=== PATIENT | female | born 1985 | race Hispanic/Latino ===

== ENCOUNTER 2022-05-23 23:13 | Emergency (ER) | payer SELFPAY ==
--- NOTE | ~2022-05-23 | CT_ITS ---
EXAMINATION: CT brain wo con DATE: 05/24/2022 00:16 INDICATION: Headache. Dizziness. TECHNIQUE: Computed tomography (CT) of the head was performed without intravenous contrast. The mA wa s adjusted according to patient size. Iterative reconstruction technique was employed. The dose-lengt h product was 605.33 mGy-cm. COMPARISON: None FINDINGS: There is no intracranial hemorrhage, acute infarction, or abnormal intracranial mass lesion . The ventricles are normal in size. There is mild mucosal thickening in the paranasal sinuses. The m astoid air cells are normal. IMPRESSION: 1. Normal brain. Reviewed, dictated and finalized at location A. IMPRESSION: 1. Normal brain.
[2022-05-23 23:29] VITALS: BP 141/90; PULSE 95; RESP 16; O2SAT 100
--- NOTE | 2022-05-23 23:43 | ED_ITS ---
HPI - General Adult General Chief complaint: Unspecified Stated complaint: Right hand swelling Headache Vomiting Time Seen by Provider: 05/23/22 23:19 History of Present Illness HPI narrative: 36-year-old female presents to the emergency room for multiple medical problems. Patient states that she woke up this morning and noticed swelling to her right hand. Denies any known injury or trauma. Does endorse a history of a DVT in the right arm 1 year ago, which she was put on anticoagulant therapy for 12 days following a cholecyst patient also states she woke up this morning with a throbbing headache on the right side occasionally causes her dizziness and blurred vision. This is associated with nausea. Denies any known head injury. Denies vision loss or hearing changes. Related Data Home Medications Medication Instructions Recorded Confirmed No Home Medications 05/23/22 05/23/22 Allergies Allergy/AdvReac Type Severity Reaction Status Date / Time No Known Allergies Allergy Verified 05/23/22 23:33 Course Vital Signs Vital signs: Vital Signs Pulse Rate 95 05/23/22 23:29 Respiratory Rate 16 05/23/22 23:29 Blood Pressure 141/90 H 05/23/22 23:29 Pulse Oximetry 100 05/23/22 23:29 Oxygen Delivery Room Air 05/23/22 23:29 Pulse Rate 95 05/23/22 23:29 Respiratory Rate 16 05/23/22 23:29 Blood Pressure 141/90 H 05/23/22 23:29 Pulse Oximetry 100 05/23/22 23:29 Oxygen Delivery Room Air 05/23/22 23:29 Medical Decision Making Vital Signs Vital Signs: Vital Signs Pulse Rate 95 05/23/22 23:29 Respiratory Rate 16 05/23/22 23:29 Blood Pressure 141/90 H 05/23/22 23:29 Pulse Oximetry 100 05/23/22 23:29 Oxygen Delivery Room Air 05/23/22 23:29 Pulse Rate 95 05/23/22 23:29 Respiratory Rate 16 05/23/22 23:29 Blood Pressure 141/90 H 05/23/22 23:29 Pulse Oximetry 100 05/23/22 23:29 Oxygen Delivery Room Air 05/23/22 23:29 Imaging Data Radiologist's impression: Head CT: Normal head CT Discharge Plan Discharge Clinical Impression: Hand swelling, Headache, Nausea, Elevated d-dimer Patient Disposition: Home, Self-Care Condition: Stable Instructions: Antibiotic Form Additional Instructions: Return tomorrow morning at 7:00 a.m. to have the ultrasound performed in your right arm to rule out a DVT. You will need to follow-up with your primary care physician if the results of the ultrasound are positive for blood clot. Patient Language: [place] Citizen Prescriptions: No Action No Home Medications Follow-up/Referrals: PHYSICIAN NOT ON STAFF,NONSTAFF [Primary Care Provider] - Time of Disposition: 01:11
[2022-05-23] MEDS: SODIUM CHLORIDE 0.9% IV 1,000 ML 999 ML IV CONT (23:52)
[2022-05-23] MEDS: KETOROLAC 30 MG/ML VIAL (*BKC) IV PUSH (23:54)
[2022-05-23] MEDS: diphenhydrAMINE HCl INJ 50 MG/ML VIAL 25 MG IV PUSH (23:55)
[2022-05-23 23:58] LABS: Basophils Absolute Auto 0.1 K/mm3 (0.0-0.1); Basophils Percent Auto 0.8 % (0.2-1.2); Eosinophils Absolute Auto 0.4 K/mm3 (0-0.3); Eosinophils Percent Auto 3.3 % (0-4.4); Hematocrit 31.8 % (37.0-47.0); Hemoglobin 8.5 g/dL (12.0-15.0); Immature Granulocyte Absolute 0.03 K/mm3 (0.00-0.031); Immature Granulocyte Percent A 0.3 % (0-0.5); Lymphocytes Absolute Auto 2.37 K/mm3 (0.9-3.2); Lymphocytes Percent Auto 22.2 % (18.3-44.2); Mean Corpuscular HGB Conc 26.7 g/dl (32-36); Mean Corpuscular Hemoglobin 18.1 pg (26-34); Mean Corpuscular Volume 67.7 fl (80-100); Monocytes Absolute Auto 0.7 K/mm3 (0.1-0.6); Monocytes Percent Auto 6.2 % (2.6-8.5); Neutrophils Absolute Auto 7.2 K/mm3 (1.3-6.7); Neutrophils Percent Auto 67.2 % (45.5-73.1); Platelet Count Result 396 k/mm3 (150-375); Red Cell Distribution Width 19.9 % (11.5-14.5); White Blood Count 10.7 K/mm3 (4.5-10.0)
[2022-05-23 23:59] LABS: Platelet Estimate Adequate (Adequate)
[2022-05-24] LABS: Hypochromasia 1+ (NORMAL); Microcytosis 1+ (NORMAL)
[2022-05-24] MEDS: METOCLOPRAMIDE HCL INJ 10 MG/2 ML VIAL IV PUSH (00:03)
[2022-05-24 00:14] LABS: Anion Gap 10 mmol/L (8-16); Blood Urea Nitrogen 11 mg/dL (7-17); Calcium 9.7 mg/dL (8.4-10.2); Carbon Dioxide 25 mmol/L (22-30); Chloride 103 mmol/L (98-107); D Dimer 1.18 ug/mL (<0.48); Estimated Glomerular Filt Rate > 60; Glucose 103 mg/dL (65-110); Potassium 3.5 mmol/L (3.4-5.0); Sodium 138 mmol/L (137-145)
[2022-05-24 00:27] LABS: Erythrocyte Sedimentation Rate 12 mm/hr (0-20)
[2022-05-24 00:48] VITALS: BP 105/74; PULSE 75; RESP 16; O2SAT 100
[2022-05-24] MEDS: APIXABAN 5 MG TABLET PO (01:30)
--- NOTE | 2022-05-24 01:37 | ED.GENADULT ---
HPI - General Adult General Chief complaint: Unspecified Stated complaint: Right hand swelling Headache Vomiting Time Seen by Provider: 05/23/22 23:19 Related Data Allergies Allergy/AdvReac Type Severity Reaction Status Date / Time No Known Allergies Allergy Verified 05/23/22 23:33 Course Vital Signs Vital signs: Vital Signs Pulse Rate 95 05/23/22 23:29 Respiratory Rate 16 05/23/22 23:29 Blood Pressure 141/90 H 05/23/22 23:29 Pulse Oximetry 100 05/23/22 23:29 Oxygen Delivery Room Air 05/23/22 23:29 Pulse Rate 75 05/24/22 00:48 Respiratory Rate 16 05/24/22 00:48 Blood Pressure 105/74 05/24/22 00:48 Pulse Oximetry 100 05/24/22 00:48 Oxygen Delivery Room Air 05/23/22 23:29 Medical Decision Making Vital Signs Vital Signs: Vital Signs Pulse Rate 95 05/23/22 23:29 Respiratory Rate 16 05/23/22 23:29 Blood Pressure 141/90 H 05/23/22 23:29 Pulse Oximetry 100 05/23/22 23:29 Oxygen Delivery Room Air 05/23/22 23:29 Pulse Rate 75 05/24/22 00:48 Respiratory Rate 16 05/24/22 00:48 Blood Pressure 105/74 05/24/22 00:48 Pulse Oximetry 100 05/24/22 00:48 Oxygen Delivery Room Air 05/23/22 23:29 Lab Data Result diagrams: 05/23/22 23:53 05/23/22 23:53 Labs: Lab Results 05/23/22 05/23/22 05/23/22 Range/Units 23:53 23:53 23:53 WBC 10.7 H (4.5-10.0) K/mm3 RBC 4.70 (4.2-5.4) M/mm3 Hgb 8.5 L (12.0-15.0) g/dL Hct 31.8 L (37.0-47.0) % MCV 67.7 L (80-100) fl MCH 18.1 L (26-34) pg MCHC 26.7 L (32-36) g/dl RDW 19.9 H (11.5-14.5) % Plt Count 396 H (150-375) k/mm3 MPV 10.0 (7.4-10.4) fl Immature Gran % (Auto) 0.3 (0-0.5) % Neut % (Auto) 67.2 (45.5-73.1) % Lymph % (Auto) 22.2 (18.3-44.2) % [place] % (Auto) 6.2 (2.6-8.5) % Eos % (Auto) 3.3 (0-4.4) % Baso % (Auto) 0.8 (0.2-1.2) % Lymph # (Auto) 2.37 (0.9-3.2) K/mm3 [place] # (Auto) 0.7 H (0.1-0.6) K/mm3 Eos # (Auto) 0.4 H (0-0.3) K/mm3 Baso # (Auto) 0.1 (0.0-0.1) K/mm3 Abs Immat Gran (auto) 0.03 (0.00-0.031) K/mm3 Absolute Neuts (auto) 7.2 H (1.3-6.7) K/mm3 Absolute Nucleated RBC 0.0 (0.0-0.012) K/mm3 Nucleated RBC % 0.0 (0.0-0.2) % Platelet Estimate Adequate (Adequate) Hypochromasia 1+ (NORMAL) Microcytosis 1+ (NORMAL) ESR 12 (0-20) mm/hr D-Dimer 1.18 H (<0.48) ug/mL Sodium 138 (137-145) mmol/L Potassium 3.5 (3.4-5.0) mmol/L Chloride 103 (98-107) mmol/L Carbon Dioxide 25 (22-30) mmol/L Anion Gap 10 (8-16) mmol/L BUN 11 (7-17) mg/dL Creatinine 0.50 L (0.7-1.0) mg/dL Estim Creat Clear Calc Not Reportable Estimated GFR > 60 (59 - ) Glucose 103 (65-110) mg/dL Calcium 9.7 (8.4-10.2) mg/dL Discharge Plan Discharge Clinical Impression: Hand swelling, Headache, Nausea, Elevated d-dimer Patient Disposition: Home, Self-Care Condition: Stable Instructions: Antibiotic Form Additional Instructions: Return tomorrow morning at 7:00 a.m. to have the ultrasound performed in your right arm to rule out a DVT. You will need to follow-up with your primary care physician if the results of the ultrasound are positive for blood clot. Patient Language: Turk[place] Prescriptions: New Janet DVT-PE Treat 30D Start 5 mg (74 tabs) tablets,dose pack 5 mg PO BID Qty: 74 0RF Follow-up/Referrals: PHYSICIAN NOT ON STAFF,NONSTAFF [Primary Care Provider] - Time of Disposition: 01:11
[2022-05-24 01:39] VITALS: BP 102/68; PULSE 70; RESP 16; O2SAT 100
--- NOTE | 2022-05-24 03:14 | PC.NURSE ---
Pt left without printed RX for apixaban. This RN spoke to pt's family member, who states they are returning to [facility] for a scheduled outpatient US at 0700. Instructed family to come to ED lobby to brick picker printed RX at that time. Will leave in envelope with shank sorter. Family member verbalized understanding.
== END 2022-05-24 01:39 | disposition home or self-care (01) ==
PROVIDERS: Emergency Provider Nurse Practitioner Family
DX: M79.89 Other specified soft tissue disorders (principal); R51.9 Headache, unspecified; R11.0 Nausea; R79.1 Abnormal coagulation profile; Z86.718 Personal history of other venous thrombosis and embolism
CPT/HCPCS: 36415; 70450; 80048; 85025; 85380; 85652; 96361; 96374; 96375; 99284; A9270; J1100; J1200; J1885; J2765; J7030

== ENCOUNTER 2022-05-24 08:29 | Outpatient (CLI) | payer OTHER, SELFPAY ==
--- NOTE | ~2022-05-24 | US_ITS ---
EXAMINATION: US venous doppler UE RT DATE: 05/24/2022 09:37 INDICATION: Right hand swelling. TECHNIQUE: Grayscale images without and with compression and Doppler images of the right upper extrem ity veins were obtained. COMPARISON: None. FINDINGS: The right internal jugular vein, subclavian vein, axillary vein, brachial vein, basilic vein, cephali c vein, radial vein, and ulnar vein are patent. IMPRESSION: 1. Patent right upper extremity veins. No evidence of venous thrombosis. Reviewed, dictated and finalized at location A.
== END 2022-05-24 08:30 | disposition home or self-care (01) ==
PROVIDERS: PCP Emergency Medicine; Visit Provider Emergency Medicine
DX: M79.89 Other specified soft tissue disorders (principal); R11.0 Nausea
CPT/HCPCS: 93971